=== PATIENT | male | born 1935 | race Caucasian/White ===

== ENCOUNTER 2017-01-09 16:10 | Inpatient (IN) | payer MEDICARE, OTHER ==
--- NOTE | ~2017-01-09 | CN ---
Consultation Report [facility] [address] [place]. [address] NAME: HOSEA CHANCE : 36 STATUS : ADM IN PAT#: [id number] AGE: 81 ADM/REG DATE : 01/09/17 MR#: [id number] REPORT SERV DATE: 01/09/17 DICTATED BY: JULIO CESAR SHEEHAN DATE: 01/09/17 REPORT STATUS : Draft TRANSCRIBED BY: MODL DATE: 01/09/17 CARDIOLOGY CONSULT NOTE DATE OF CONSULTATION: 01/09/2017 REASON FOR CONSULTATION: Elevated cardiac biomarkers and aortic stenosis in an 81-year-old man admitted with suspected GI bleeding. HISTORY OF PRESENT ILLNESS: Mr. Chance is a pleasant 81-year-old man who is a patient of Dr. Roe Rivero. The patient has a history of coronary artery disease, status post coronary artery bypass grafting surgery in the year 1988. The patient also has a history of aortic valve stenosis: This has been followed with serial echocardiography. The patient's most recent echocardiogram performed 05/28/2016 is suggestive of severe aortic stenosis with a calculated valve area of 0.7 cm2 and a mean gradient of 38 mmHg, with dimensionless index of 0.22. The patient apparently has chronic chest pain and dyspnea. It was felt that this may be due to severe anemia however. The plan according to Dr. Rivero at the time of the patient's last visit was for the patient to have a trial of iron supplementation in order to restore his hemoglobin to normal, and then to determine whether the patient continued to have symptoms suggestive of aortic stenosis. The patient apparently was in his usual state of health until one-two weeks ago. The patient began to have a pressure/burning-type chest pain in his chest which would radiate around to his neck and back. This was associated with dyspnea. The patient also describes symptoms suggestive of orthopnea. He was seen by his primary care provider, who later referred him to [facility]. The patient had a lab workup there, which demonstrated severe anemia. The patient underwent transfusion of 2 packed red blood cells. Apparently, further cardiac and GI workup was not pursued, and the patient was eventually discharged to home. He continued to have symptoms of shortness of breath and chest pain and therefore, presented to [facility] Emergency Room this evening. At this time, the patient reports that he is chest pain-free, and breathing easily. PAST MEDICAL HISTORY: 1. Aortic stenosis. 2. Coronary artery disease, status post coronary artery bypass grafting surgery in 1988. 3. Hypertension. 4. Dyslipidemia. 5. Benign prostatic hypertrophy. 6. Hypothyroidism. 7. Benign positional vertigo. PAST SURGICAL HISTORY: Significant only for coronary artery bypass grafting surgery as noted above. FAMILY HISTORY: The patient has a strong positive family history of coronary heart disease. Consultation Report [address] [place]. [address] NAME: HOSEA CHANCE : 36 STATUS : ADM IN [facility]#: [id number] AGE: 81 ADM/REG DATE : 01/09/17 MR#: [id number] REPORT SERV DATE: 01/09/17 DICTATED BY: JULIO CESAR SHEEHAN DATE: 01/09/17 REPORT STATUS : Draft TRANSCRIBED BY: LENA DATE: 01/09/17 He has six brothers, all of whom have been diagnosed with coronary artery disease or undergone coronary artery bypass grafting surgery. His father of complications related to peripheral arterial disease at age 62. There is no family history of sudden cardiac or early malignancy. SOCIAL HISTORY: The patient reports that he quit smoking in the year 1969. He has no significant history of alcohol or drug use. He is . ALLERGIES: THE PATIENT REPORTS AN ADVERSE REACTION TO CODEINE AND DEMEROL, BUT WHICH CAUSE NAUSEA AND VOMITING. HOME MEDICATIONS: 1. Aspirin 81 mg p.o. daily. 2. Vitamin D3 1000 units p.o. daily. 3. Vitamin B12 1000 mcg sublingual daily. 4. Flexeril 5-10 mg p.o. as needed for muscle spasm. 5. Diltiazem XT 180 mg p.o. daily. 6. Doxazosin 2 mg p.o. q.p.m. 7. Avodart 0.5 mg p.o. at bedtime. 8. Glucosamine/D3/Boswellia tablet one daily. 9. Levothyroxine 75 mcg p.o. daily. 10.Lisinopril 20 mg p.o. daily. 11.Magnesium oxide 400 mg p.o. daily. 12.Meclizine 25 mg p.o. q.8 hours p.r.n. 13.Remeron 30 mg p.o. at bedtime. 14.Niaspan 1 g p.o. at bedtime. 15.Fish oil supplement 1 mg p.o. daily. 16.Omeprazole 40 mg p.o. daily. 17.Pravastatin 40 mg p.o. at bedtime. 18.Vitamin E 400 units p.o. daily. 19.Tramadol 100 mg p.o. three times daily as needed for pain. 20.Wjnc-ftw-djgnnmd "arterial therapy" supplement one tablet daily. 21.Iron over the counter supplement one tablet daily. 22.Garlic over the counter supplement one capsule daily. 23.PreserVision soft gel capsules one daily. REVIEW OF SYSTEMS: A complete 12-system review was performed. This is significant for an apparent previous history of chelation therapy according to Dr. Rivero' note. The remainder of the review of systems is noncontributory except for the pertinent positives and negatives noted in the history of present illness above. PHYSICAL EXAMINATION: VITAL SIGNS: Temperature is 98.0 degrees Fahrenheit, blood pressure is 147/63 mmHg, heart rate is 77 beats per minute and regular, respirations 12, oxygen saturation is 99% on room Consultation Report [address] [place]. [address] NAME: HOSEA CHANCE : 36 STATUS : ADM IN [facility]#: [id number] AGE: 81 ADM/REG DATE : 01/09/17 MR#: [id number] REPORT SERV DATE: 01/09/17 DICTATED BY: JULIO CESAR SHEEHAN DATE: 01/09/17 REPORT STATUS : Draft TRANSCRIBED BY: LENA DATE: 01/09/17 air. CONSTITUTIONAL: The patient is a slightly pale appearing elderly white man, who is in no acute distress. EYES: PERRL, EOMI, clear conjunctiva. HEAD/MNT: NCAT with moist mucous membranes and grossly normal hard and soft palate. NECK: Supple with no obvious thyromegaly or lymphadenopathy. CARDIOVASCULAR: There is a regular rhythm with a normal S1 and a diminished aortic component of the second heart sound. There is a grade 3/6 mid-peaking systolic ejection murmur noted at the right upper sternal border with radiation to the sternal notch. The jugular venous pressure appears normal. PULMONARY: Clear to auscultation bilaterally with no wheezing, rales, rhonchi, or dullness to percussion. ABDOMINAL: Soft, non-tender, non-distended with no hepatosplenomegaly noted. EXTREMITIES: There is decreased blood pressure reading in the right upper extremity with slightly diminished right radial pulse in comparison to the left radial pulse. MUSCULOSKELETAL: Grossly normal strength and range of motion in all extremities. INTEGUMENTARY: Skin appears intact with no bruises, wounds or active lesions noted. NEURO/PSYC: Alert and oriented x3, with no dysarthria, facial droop or lateralizing weakness noted. 12-LEAD EKG: The patient's 12-lead EKG shows normal sinus rhythm with nonspecific ST/T-wave abnormalities of the lateral precordial leads which are suggestive of ischemia. Otherwise, unremarkable tracing. LABORATORY DATA: Metabolic profile shows a sodium of 137, potassium 4.2, chloride is 102, CO2 is 29, BUN 12, creatinine is 0.95, glucose is 133, calcium 8.6, albumin is 3.1. Cell count show a white blood cell count of 6.0, hemoglobin 10, hematocrit 31, platelets 187. INR is 1.0. PTT is 30. Troponin I is elevated at 1.05. ASSESSMENT AND PLAN: 1. Elevated cardiac biomarkers: This most likely represents demand ischemia from the patient's recent transfusion-dependent anemia. For now, I would recommend no specific therapy aside from treatment of the patient's underlying GI bleeding. The patient is chest pain-free. Most likely, the patient will require endoscopy. A repeat echocardiogram will be obtained tomorrow to clarify the degree of aortic stenosis. We will make further periprocedural recommendations prior to endoscopy after GI has evaluated the patient. 2. Coronary artery disease: We would recommend that the patient be transitioned from pravastatin to atorvastatin. Continue aspirin if possible. We will withhold beta- leo therapy at this time given possible symptomatic anemia and aortic stenosis. Ultimately, the patient will most likely require coronary angiography in preparation for either aortic valve replacement or to identify occlusive coronary artery disease which may have caused the patient's elevated cardiac biomarkers. 3. Aortic stenosis: The presentation is concerning for symptomatic aortic stenosis. Should the patient be found to have AVMs, this may be a manifestation of severe aortic Consultation Report [place] [address] [place]. [address] NAME: HOSEA CHANCE : 36 STATUS : ADM IN [facility]#: [id number] AGE: 81 ADM/REG DATE : 01/09/17 MR#: [id number] REPORT SERV DATE: 01/09/17 DICTATED BY: JULIO CESAR SHEEHAN DATE: 01/09/17 REPORT STATUS : Draft TRANSCRIBED BY: LENA DATE: 01/09/17 stenosis. Should the patient have severe aortic stenosis by echocardiography, consider further workup for either transcatheter or traditional aortic valve replacement surgery. The Cardiology Service will continue to follow the patient closely during this hospitalization. Thank you for allowing me to participate in the care of Mr. Chance. [facility]/LENA Julio Cesar Sheehan MD / [id number] CC: MD Tom Doran MD
--- NOTE | ~2017-01-09 | CN ---
Consultation Report [facility] [address] [place]. [address] NAME: HOSEA CHANCE : 36 STATUS : ADM IN [facility]#: [id number] AGE: 81 ADM/REG DATE : 01/09/17 MR#: [id number] REPORT SERV DATE: 01/11/17 DICTATED BY: MARGY VAZQUEZ DATE: 01/11/17 REPORT STATUS : Draft TRANSCRIBED BY: MODRenzo DATE: 01/11/17 GI CONSULTATION NOTE DATE OF CONSULTATION: 01/10/2017 REASON FOR CONSULTATION: Dark stool. Anemia. HISTORY OF PRESENT ILLNESS: Mr. Chance is an 81-year-old white male with a history of coronary artery disease, status post CABG in 1988 as well as severe aortic stenosis who presented to [facility] with severe chest pain which radiated to his left side. He had been seen at [facility] for the same complaints at which time, he was also found to be anemic with a hemoglobin of 7.4 and a hematocrit of 22.5. He received 2 units of PRBCs. His H and H on admission were 10 and 30 and they are currently 9.4 and 29.1 respectively; platelets 174. INR is 1. BUN to creatinine ratio is 10:0.82. He has had intermittent dark stools but this is his normal bowel movement as he has been on oral iron supplementation chronically. He has not yet had a bowel movement since he has been in the hospital. He had an echocardiogram earlier today which showed an ejection fraction of 50% to 55% and severe aortic stenosis. His troponin was also elevated at 1 and now is 0.92. No coffee-ground emesis. No hematemesis. No bright red blood per rectum or hematochezia. PAST MEDICAL HISTORY: Coronary artery disease, status post CABG in 1988, severe aortic stenosis, hypertension, dyslipidemia, iron deficiency anemia, and hypothyroidism. PAST SURGICAL HISTORY: CABG in 1988 and skin surgeries. SOCIAL HISTORY: Quit tobacco in . Denies any alcohol or drug use. He is and is at bedside. FAMILY HISTORY: Coronary artery disease. MEDICATIONS: Reviewed. ALLERGIES: REVIEWED. PHYSICAL EXAMINATION: VITAL SIGNS: The patient is afebrile. His vital signs have been stable. GENERAL: The patient is awake, alert, and oriented x3. Well developed, well nourished, in no acute distress. HEENT: Atraumatic, normocephalic. Anicteric. Mucous membranes moist. CARDIAC: S1, S2. A 4/6 murmur heard (aortic stenosis). CHEST: Clear to auscultation bilaterally. ABDOMEN: Soft, nontender, and nondistended. Bowel sounds normoactive. LABORATORY DATA: Show WBC 6.2, hemoglobin 9.4, hematocrit 29.1, and platelets 174. Sodium Consultation Report [place] [address] [place]. [address] NAME: HOSEA CHANCE : 36 STATUS : ADM IN PAT#: [id number] AGE: 81 ADM/REG DATE : 01/09/17 MR#: [id number] REPORT SERV DATE: 01/11/17 DICTATED BY: MARGY VAZQUEZ DATE: 01/11/17 REPORT STATUS : Draft TRANSCRIBED BY: LENA DATE: 01/11/17 139, potassium 4.6, chloride 106, bicarb 24, BUN 10, creatinine 0.82, glucose 92. INR is 1. Troponin 1 and 0.92. Echocardiogram as above. IMPRESSION AND PLAN: Anemia of unclear etiology. The patient reports colonoscopy done several years ago at an outside facility. No history of polyps. Denies any NSAID use. Does not appear to have any active bleeding as his H and H have been stable thus far, and he has had no bowel movements nor any coffee-ground or hematemesis since he has been here. Apparently at [facility], no endoscopic evaluation was performed for his hemoglobin of 7.4 and hematocrit of 22.5, unclear reasons but may be related to his cardiovascular disease and symptoms. Ideally, we would like to follow up on his arteriogram and see his preanesthesia risk of the procedure which may outweigh the benefit given that he is not actively bleeding at this time. At some point, we would recommend an EGD and colonoscopy for further evaluation, but given his cardiovascular risk and lack of bleeding, we will defer until the results of the arteriogram are available. I reviewed this with the patient and his . I reviewed the procedures regarding endoscopy, both panendoscopy and colonoscopy, with the patient and his regarding the risks, benefits, and alternatives and they are agreeable to aid an arteriogram before pursuing endoscopic evaluation. We will continue to follow with you. MIRNA/LENA Margy Vazquez MD / [id number] CC: Isak Harmon [facility]
--- NOTE | ~2017-01-09 | HP ---
History And Physical [facility] [address] [place]. [address] NAME: HOSEA CHANCE : 36 STATUS : ADM IN [facility]#: [id number] AGE: 81 ADM/REG DATE : 01/09/17 MR#: [id number] REPORT SERV DATE: 01/09/17 DICTATED BY: RENATA TINAJERO DATE: 01/09/17 REPORT STATUS : Draft TRANSCRIBED BY: MODL DATE: 01/09/17 DATE OF ADMISSION: 01/09/2017 REASON FOR ADMISSION: Elevated biomarker with heme-positive stool. CHIEF COMPLAINT: "I was told to come here from [facility] because I am having heart issues." CIGAR BANDER: Dr. Paula with [facility]. HISTORY OF PRESENT ILLNESS: An 81-year-old, white male with a history of hypertension, hyperlipidemia, coronary artery disease, status post CABG in 1988 with severe aortic stenosis with a valve area of 0.7 with a mean gradient of 38 based on echo in 05/2016, has been having some off and on pain between his scapula that has been radiating to his left chest side. He says this has been worsening. He had a scheduled appointment with Dr. Paula this past Tuesday, but he decided to go to see his PCP, Dr. Watts, who was not in, but his nurse practitioner had evaluated him. The patient reports that in his PCP's office. He had an EKG, which was reportedly normal, but he had taken a dose of nitroglycerin. The nurse practitioner had instructed him to go to [place] [facility] for further evaluation. While he was going into the ER, he was having ongoing chest pain and took some more nitroglycerin. He eventually had a nitroglycerin patch put on in the ER. He reportedly had a normal EKG. He was admitted to [facility] on Tuesday for it what sounds like a rule out for an OK. He says that he had some biomarkers taken but is not sure of their values. His seems to think that they were "not" normal. He was also anemic but does not recall his hemoglobin level. According to the patient and his , he was initially scheduled for a stress test and went down for one on Tuesday. They were about to inject him with something for his stress test, but they decided to not do it and instead, the physician taking care of the patient contacted one of our [facility] cardiologists on Tuesday and suggesting to transfuse the patient two units when he initially was going to do one unit of blood. Again, we do not know what his biomarkers were or what his hemoglobin levels were. The patient denies any workup for his anemia at [facility] [place] including a Hemoccult or any iron studies. The patient had two units of packed red blood cells transfused with the last unit being administered this morning at [facility]. According to the patient, he says that he had been offered to transfer the patient via ambulance to [facility] as this is where his administrative specialist is, but he was told that it may take a day or two, and so, he felt safe to be discharged. He was discharged and then told to come to [facility] for further evaluation. In the ER, he was found to have a normal EKG, but it elevated a troponin of around 1.05. His hemoglobin is 10. He was found to be Hemoccult positive in the ER; however, the patient states that he has been on iron supplements and having hard stools as a result, he does not notice any melena in his stools or bright red blood. He states that he had a colonoscopy around six to seven years ago that was ordered by Dr. Watts, and he says that it was okay with maybe a polyp. He says that he had three Hemoccult stool cards that were negative with the last one being a month ago as Dr. Watts was working up his anemia. He is currently chest pain free. However, he is wearing the same nitroglycerin patch that he had on at [facility]. He denies any shortness of breath, but he does state that his symptoms of scapular pain radiating to his left side was similar in nature to his OK that he had in 1988, which led to History And Physical [address] [place]. [address] NAME: HOSEA CHANCE : 36 STATUS : ADM IN [facility]#: [id number] AGE: 81 ADM/REG DATE : 01/09/17 MR#: [id number] REPORT SERV DATE: 01/09/17 DICTATED BY: RENATA TINAJERO DATE: 01/09/17 REPORT STATUS : Draft TRANSCRIBED BY: LENA DATE: 01/09/17 his open heart surgery. He states that he had a 95% blockage in one of his vessels that was done on a catheterization sometime after his open heart surgery. He states that Dr. Rivero and Dr. Paula have been watching his aortic stenosis. The patient denies at this time any shortness of breath or orthopnea but does note some increasing chest pain on exertion. I discussed the case with Dr. Warren Sheehan who was on-call in the ER with Cardiology to evaluate this patient. He does not have a roof service technician that he can remember. He does not recall who had performed his colonoscopy years ago. No fever, diarrhea, dysuria, or hematuria. REVIEW OF SYSTEMS: As per HPI, otherwise 10-point systems are reviewed and are negative. PAST MEDICAL HISTORY: 1. OK. 2. Coronary artery disease. 3. Hypertension. 4. Hyperlipidemia. 5. Iron-deficiency anemia. 6. Hypothyroidism. He had [address] Fiore, last one about two years ago. He denies any history of diabetes and stroke. He denies a history of having an EGD. PAST SURGICAL HISTORY: He had a CABG done in 1988. He had some minor skin surgeries. SOCIAL HISTORY: He is a nonsmoker but quit in 1969. He denies any alcohol or illegal drug use. He is for 57 years, one son, he has retired from the [employer]. FAMILY HISTORY: Positive for multiple siblings and relatives with OK and coronary artery disease. ALLERGIES: INCLUDE CODEINE AND MEPERIDINE CAUSING NAUSEA AND VOMITING. MEDICATIONS: Include aspirin 81 mg daily, vitamin D3 1000 units daily, vitamin B12 1000 mcg daily, Flexeril 5-10 mg p.r.n. muscle spasms, Cartia XT 100 mg daily, Cardura 2 mg every evening, Avodart 0.5 mg at bedtime, osteo Bi-Flex one tablet daily, levothyroxine 75 mcg daily, Prinivil 20 mg daily, mag oxide 400 mg daily, Antivert p.r.n. vertigo, Remeron 30 mg at bedtime, Niaspan 1000 mg at bedtime, fish oil 1000 mg daily, Prilosec 40 mg daily, Pravachol 40 mg at bedtime, vitamin E 400 units daily, Ultram 100 mg three times a day p.r.n. pain, iron tablets daily, garlic capsule daily, vision vitamins daily. PHYSICAL EXAMINATION: VITAL SIGNS: Blood pressure is 147/63, temperature is 98, pulse 77, sat 99% on room air. GENERAL: He is in no acute distress. He is very pleasant. He is chest pain free but wearing a nitroglycerin patch from [place]. He is standing up. His is at his bedside. He is in good spirits. HEENT: Normocephalic and atraumatic head. Extraocular muscles are intact. Oropharynx is clear. History And Physical [address] [address] NAME: HOSEA CHANCE : 36 STATUS : ADM IN PAT#: [id number] AGE: 81 ADM/REG DATE : 01/09/17 MR#: [id number] REPORT SERV DATE: 01/09/17 DICTATED BY: RENATA TINAJERO DATE: 01/09/17 REPORT STATUS : Draft TRANSCRIBED BY: LENA DATE: 01/09/17 NECK: Supple. No JVD. CARDIAC: Regular rhythm with a 3/6 murmur consistent with severe aortic stenosis. PULMONARY: Faint bibasilar crackles, otherwise clear. No wheezing. ABDOMEN: Obese, soft, nontender, and nondistended. Positive bowel sounds. EXTREMITIES: Show no clubbing, cyanosis, or edema. NEUROLOGIC: No focal deficits. PSYCHIATRIC: The patient is cooperative. Mood is appropriate. SKIN: Warm and dry. LABORATORY DATA: Labs show a white blood cell count of 6, hemoglobin of 10, MCV of 93, platelet of 187, INR 1. CMP shows an albumin of 3.1, alkaline phosphatase of 34, troponin of 1.05. IMAGING: Chest x-ray interpretation by me shows sternotomy wires with cardiomegaly, no acute process, no pleural effusion. EKG shows normal sinus rhythm. Otherwise, unremarkable. IMPRESSION: 1. Hemoccult stool. This could be possibly secondary to a GI bleed. However, he is on iron pills and has hard stools and does not note any melena prior to hospitalization. This could be a false positive reading. 2. Anemia, iron deficiency, unsure if this is acute blood loss or chronic blood loss, less likely nutritional deficiency as his says that they eat the same thing and she is not anemic. 3. Elevated biomarker, which could be demand ischemia. Given the fact that he was transfused 2 units of blood with a normal EKG; however, this could also represent acute coronary syndrome as he did have chest pain at [place] along with an elevated biomarker. 4. Chest pain from the scapula radiating to his left chest wall but he is chest pain free, currently wearing a nitroglycerin patch. 5. Coronary artery disease with a history of an OK, status post CABG in 1988. 6. Severe aortic stenosis with an area of 0.7 cm2 based on echo in 05/2016. 7. Hypertension. PLAN: The plan is this is an extremely confusing picture given that we do not have any records as of yet from [place] as to whether or not he has anemia causing a demand ischemia or if he truly has acute coronary syndrome. At any rate, we will start PPI drip. We will monitor his troponins. Dr. Sheehan has been notified to help sort this out. [facility] has been consulted for a probable EGD. We will not start a heparin drip for acute coronary syndrome as he could be having a GI bleed. We will resume his home medications. He has been typed and screen. It is unnecessary to do iron studies as he has just finished two units of packed red blood cell transfusion from [place] this morning. We will certainly obtain records from [facility] to ascertain what had transpired at that facility along with what his biomarkers and hemoglobin were. MACIE/LENA History And Physical [address] [address] NAME: HOSEA CHANCE : 36 STATUS : ADM IN [facility]#: [id number] AGE: 81 ADM/REG DATE : 01/09/17 MR#: [id number] REPORT SERV DATE: 01/09/17 DICTATED BY: RENATA TINAJERO DATE: 01/09/17 REPORT STATUS : Draft TRANSCRIBED BY: LENA DATE: 01/09/17 Renata Tinajero MD / [id number] CC: MD MAYA Doran RUSSELL BLAINE C. Samuel Ledford, M.D.
--- NOTE | ~2017-01-09 | DS ---
Discharge Summary [facility] [address] [place]. [address] NAME: HOSEA CHANCE : 36 STATUS : DIS IN PAT#: [id number] AGE: 81 ADM/REG DATE : 01/09/17 MR#: [id number] REPORT SERV DATE: 01/14/17 DICTATED BY: MANINDER MOONEY DATE: 01/13/17 REPORT STATUS : Draft TRANSCRIBED BY: MODL DATE: 01/13/17 ADMISSION DATE: 01/09/2017 DISCHARGE DATE: 01/13/2017 CONDITION ON DISCHARGE: Stable. DISPOSITION: To home. ADVICE ON DISCHARGE: For the patient to follow up with Dr. Rivero, the set up and charger, within the next three to four weeks for evaluation for aortic valve replacement for severe aortic stenosis. DIAGNOSIS ON DISCHARGE: Acute coronary syndrome, status post coronary catheterization and status post coronary stenting in the right coronary artery. It was found that the patient's kiana right coronary artery was blocked to 75% on angiogram and this was taken care of with angioplasty and drug-eluting new stent that was put in by Dr. Rivero. At the same time, it was found that the patient does have severe aortic stenosis, and there is a definitive need for immediate replacement of the aortic valve which will be accomplished by Dr. Rivero within the next one month. OTHER DIAGNOSES: At this time include heme-positive stools - this has resolved, and the patient's hemoglobin and hematocrit are stable. In fact, the patient has received two units of PRBCs to improve his hemoglobin and hematocrit, and has been evaluated by GI, Dr. Vazquez. Right now, because of his pressing coronary issues, the patient will not be getting an endoscopy now, but maybe at some point later, maybe even after he has his aortic valve replaced. Other diagnoses also include the followin. Coronary artery disease with coronary artery bypass graft done in the past. Coronary artery bypass graft was performed more than 25 years ago, and according to the patient, this was performed in the year 1988, and so far, the patient has had a patent grafts of both the internal mammary artery and the saphenous vein graft. 2. Hypertension which is stable. 3. Hyperlipidemia which is stable. 4. Hypothyroidism which is stable. 5. Chronic iron deficiency anemia, for which the patient will go on iron tablets as supplements. BRIEF HOSPITAL COURSE: The patient is a very pleasant 81-year-old male patient who was admitted with the diagnosis as outlined as in the H and P. Essentially, he was admitted with heme-positive stool and also acute coronary syndrome with chest discomfort and elevated biomarkers. Both Cardiology and GI were consulted. As mentioned above, his endoscopy was postponed given that the patient was more in need of coronary revascularization. The patient did undergo coronary angiography and revascularization of the offending vessel which was the right coronary artery at this time. The patient had a 75% block in this artery. Dr. Rivero performed the procedure and put a special stent that requires only a month of Discharge Summary [place] [id number] [place]. [address] NAME: HOSEA CHANCE : 36 STATUS : DIS IN PAT#: [id number] AGE: 81 ADM/REG DATE : 01/09/17 MR#: [id number] REPORT SERV DATE: 01/14/17 DICTATED BY: MANINDER MOONEY DATE: 01/13/17 REPORT STATUS : Draft TRANSCRIBED BY: LENA DATE: 01/13/17 treatment with aspirin and Plavix and after that, the patient can only be on 81 mg of aspirin a day. This should definitely help given the fact that the patient came in with GI bleed and a stool Hemoccult positive. The patient understands this also. So for now, he is being sent home on both Plavix and aspirin, and he will continue only the aspirin in a month's time. In addition to this, the patient also had severe aortic stenosis which will definitely require arteriogram and replacement again in the near future, and Dr. Rivero plans to do this within the next one month. The patient is aware and will follow up with Dr. Rivero within the next one month also. DISCHARGE MEDICATIONS: The medications that the patient will be going home on discharge will include the following: First of all, he will be on aspirin 81 mg every day. He will be on Plavix 75 mg once a day for the next one month only. 1. Tramadol 100 mg p.o. t.i.d., p.r.n. 2. Flexeril 5-10 mg p.o. once at night p.r.n. 3. Cartia XT or diltiazem ER 180 mg once a day. 4. Prilosec 40 mg once a day. 5. Niacin ER 1000 mg at bedtime. 6. Cardura 2 mg p.o. every day. 7. Remeron 30 mg p.o. daily. 8. Prinivil 10 mg p.o. daily. 9. Levothyroxine 75 mcg p.o. daily. 10.Meclizine 25 mg p.o. q.8 hours p.r.n. for dizziness. 11.Avodart 0.5 mg p.o. at bedtime. 12.Vitamin B12 tablets. The patient will also be taking magnesium and other vitamins and supplements as he has been taking in the past. He will also be on Lipitor 40 mg once a day, Lopressor 12.5 mg p.o. b.i.d., and nitroglycerin 0.4 mg sublingually p.r.n. only for chest pain. His most recent labs that I have show that his CBC shows a WBC count of 6.1, hemoglobin 9.7, hematocrit 29.7, which has been stable in the last two days, platelet count of 185. Electrolyte profile shows sodium 141, potassium 3.5, BUN is 6, creatinine is normal at 0.8. His CPK, CK-MB have all come back within normal range. The patient also had a bilateral carotid ultrasound that shows grade 1 disease of less than 50% luminal stenosis in the carotid arteries. Hence, the patient is being discharged home in stable condition with the above advice, and I have spent about 40 minutes in coordinating discharge care of this patient including face-to face encounter and summarizing this discharge. MOHSEN/LENA Maninder Alegria Discharge Summary [place] [address] [address] [place]. [address] NAME: HOSEA CHANCE : 36 STATUS : DIS IN PAT#: [id number] AGE: 81 ADM/REG DATE : 01/09/17 MR#: [id number] REPORT SERV DATE: 01/14/17 DICTATED BY: MANINDER MOONEY DATE: 01/13/17 REPORT STATUS : Draft TRANSCRIBED BY: LENA DATE: 01/13/17 Isak Mooney / [id number] CC: Isak Harmon RUSSELL BLAINE
[2017-01-09 14:08] LABS: BASOPHILS 0.7 %; BASOPHILS ABSOLUTE 0.04 10/3/uL (0.0-0.16); EOSINOPHILS 10.2 %; EOSINOPHILS ABSOLUTE 0.61 10/3/uL (0.0-0.53); ER CBC TAT 0 Hrs 05 Mins; HEMATOCRIT 30.9 % (40.0-51.0); IMMATURE GRANULOCYTES 0.5 %; IMMATURE GRANULOCYTES ABSOLUTE 0.03 10/3/uL (0.0-0.11); LYMPHOCYTES 19.6 %; LYMPHOCYTES ABSOLUTE 1.17 10/3/uL (0.67-4.30); MEAN CORPUS HGB CONC 32.4 g/dL (32.0-36.0); MEAN CORPUSCULAR HEMOGLOB 30.2 pg (26.0-34.0); MEAN CORPUSCULAR VOLUME 93.4 fL (80-100); MEAN PLATELET VOLUME 8.9 fL (9.2-13.0); MONOCYTES 8.9 %; MONOCYTES ABSOLUTE 0.53 10/3/uL (0.21-1.20); NEUTROPHILS 60.1 %; NEUTROPHILS ABSOLUTE 3.58 10/3/uL (2.02-8.40); PLATELET COUNT 187 10/3/uL (150-400); RBC DISTRIBUTION WIDTH 18.5 % (12.0-16.0); RED CELL COUNT 3.31 10/6/uL (4.7-6.1)
[2017-01-09 14:10] LABS: MANUAL DIFF NO %
[2017-01-09 14:22] LABS: PARTIAL THROMBO TIME 30.3 SEC (22.5-37.2); PROTIME (NOT ORD) 13.5 SEC (12.0-14.5)
[2017-01-09 14:23] LABS: A/G RATIO 0.9 (0.7-1.9); ALBUMIN 3.1 G/DL (3.5-5.0); ALKALINE PHOSPHATASE 34 U/L (45-117); BUN (BLOOD UREA NITROGEN) 12 MG/DL (6-23); CALCIUM, SERUM 8.6 MG/DL (8.5-10.4); CHLORIDE, SERUM 102 MMOL/L (96-112); CO2 (CARBON DIOXIDE) 29 MMOL/L (24-34); CREATININE 0.95 MG/DL (0.70-1.30); GFR AFRICAN AMERICAN 87 ML/MIN (>=60); GFR NON AFRICAN AMERICAN 75 ML/MIN (>=60); GLOBULIN 3.5 G/DL (2.5-4.1); GLUCOSE, SERUM 133 MG/DL (60-99); POTASSIUM, SERUM 4.2 MMOL/L (3.5-5.3); SGOT(AST) 24 U/L (5-40); SGPT(ALT) 23 U/L (5-65); SODIUM, SERUM 137 MMOL/L (135-148); TOTAL BILIRUBIN 0.4 MG/DL (0-1.2); TOTAL PROTEIN 6.6 G/DL (6.0-8.5)
[2017-01-09] MEDS ORDERED: FLEXERIL5 MG PO (16:31)
[2017-01-09] MEDS ORDERED: ULTRAM50 PO (16:31)
[2017-01-09] MEDS ORDERED: PRAVACHOL40 MG PO (16:32)
[2017-01-09] MEDS ORDERED: PRILO PO (16:32)
[2017-01-09] MEDS ORDERED: HALF81 PO (16:32)
[2017-01-09] MEDS ORDERED: CARTIA XT180 MG/24 PO (16:32)
[2017-01-09] MEDS ORDERED: CARDU2 PO (16:33)
[2017-01-09] MEDS ORDERED: REMERON30 MG PO (16:33)
[2017-01-09] MEDS ORDERED: PRIN10 PO (16:33)
[2017-01-09] MEDS ORDERED: NIASPAN500 PO (16:33)
[2017-01-09] MEDS ORDERED: LEVOTHYROXIN75 MCG PO (16:33)
[2017-01-09] MEDS ORDERED: AVODART PO (16:34)
[2017-01-09] MEDS ORDERED: MCZ25 PO (16:34)
[2017-01-09] MEDS ORDERED: [UNRECOGNIZED DRUG - OTHER] PO (16:35)
[2017-01-09] MEDS ORDERED: FISH-EPA1000 MG PO (16:35)
[2017-01-09] MEDS ORDERED: VITAMIN D31000 UNIT PO (16:35)
[2017-01-09] MEDS ORDERED: [UNRECOGNIZED DRUG - OTHER] PO (16:35)
[2017-01-09] MEDS ORDERED: MAGOX4 PO (16:35)
[2017-01-09] MEDS ORDERED: VITAMIN B-121000 MC1 SL (16:35)
[2017-01-09] MEDS ORDERED: VITE PO (16:35)
[2017-01-09] MEDS ORDERED: GARLIC CAPSULE PO (16:36)
[2017-01-09] MEDS ORDERED: OSTEO BI-FLEX1 EACH PO (16:36)
[2017-01-09] MEDS ORDERED: PRESERVISION A1 EAC1 PO (16:36)
[2017-01-09 22:41] LABS: PHOSPHORUS, SERUM 3.1 MG/DL (2.5-4.5); TROPONIN I 0.99 NG/ML (<0.05)
[2017-01-10 04:49] LABS: BASOPHILS 0.6 %; BASOPHILS ABSOLUTE 0.04 10/3/uL (0.0-0.16); EOSINOPHILS 10.7 %; EOSINOPHILS ABSOLUTE 0.66 10/3/uL (0.0-0.53); HEMATOCRIT 29.1 % (40.0-51.0); HEMOGLOBIN 9.4 g/dL (13.6-17.8); IMMATURE GRANULOCYTES 0.3 %; IMMATURE GRANULOCYTES ABSOLUTE 0.02 10/3/uL (0.0-0.11); LYMPHOCYTES 21.5 %; LYMPHOCYTES ABSOLUTE 1.33 10/3/uL (0.67-4.30); MEAN CORPUS HGB CONC 32.3 g/dL (32.0-36.0); MEAN PLATELET VOLUME 9.4 fL (9.2-13.0); MONOCYTES 11.1 %; MONOCYTES ABSOLUTE 0.69 10/3/uL (0.21-1.20); NEUTROPHILS 55.8 %; NEUTROPHILS ABSOLUTE 3.45 10/3/uL (2.02-8.40); PLATELET COUNT 174 10/3/uL (150-400); RBC DISTRIBUTION WIDTH 18.1 % (12.0-16.0); RED CELL COUNT 3.13 10/6/uL (4.7-6.1); WHITE BLOOD CELLS 6.2 10/3/uL (4.5-10.5)
[2017-01-10 04:51] LABS: MANUAL DIFF NO %
[2017-01-10 05:00] LABS: BUN (BLOOD UREA NITROGEN) 10 MG/DL (6-23); CHLORIDE, SERUM 106 MMOL/L (96-112); CREATININE 0.82 MG/DL (0.70-1.30); GFR AFRICAN AMERICAN 97 ML/MIN (>=60); GFR NON AFRICAN AMERICAN 84 ML/MIN (>=60); PHOSPHORUS, SERUM 3.8 MG/DL (2.5-4.5); SODIUM, SERUM 139 MMOL/L (135-148)
[2017-01-10 05:01] LABS: CO2 (CARBON DIOXIDE) 24 MMOL/L (24-34); GLUCOSE, SERUM 92 MG/DL (60-99); POTASSIUM, SERUM 4.6 MMOL/L (3.5-5.3)
[2017-01-11 06:51] LABS: BASOPHILS 1.1 %; BASOPHILS ABSOLUTE 0.07 10/3/uL (0.0-0.16); EOSINOPHILS 11.8 %; EOSINOPHILS ABSOLUTE 0.78 10/3/uL (0.0-0.53); HEMATOCRIT 29.4 % (40.0-51.0); HEMOGLOBIN 9.4 g/dL (13.6-17.8); IMMATURE GRANULOCYTES 0.2 %; IMMATURE GRANULOCYTES ABSOLUTE 0.01 10/3/uL (0.0-0.11); LYMPHOCYTES 23.4 %; LYMPHOCYTES ABSOLUTE 1.55 10/3/uL (0.67-4.30); MEAN CORPUSCULAR HEMOGLOB 29.7 pg (26.0-34.0); MEAN CORPUSCULAR VOLUME 92.7 fL (80-100); MEAN PLATELET VOLUME 9.1 fL (9.2-13.0); MONOCYTES 11.2 %; MONOCYTES ABSOLUTE 0.74 10/3/uL (0.21-1.20); NEUTROPHILS 52.3 %; NEUTROPHILS ABSOLUTE 3.47 10/3/uL (2.02-8.40); PLATELET COUNT 190 10/3/uL (150-400); RBC DISTRIBUTION WIDTH 17.4 % (12.0-16.0); RED CELL COUNT 3.17 10/6/uL (4.7-6.1); WHITE BLOOD CELLS 6.6 10/3/uL (4.5-10.5)
[2017-01-11 07:04] LABS: MANUAL DIFF NO %
[2017-01-11 07:07] LABS: BUN (BLOOD UREA NITROGEN) 6 MG/DL (6-23); CALCIUM, SERUM 7.9 MG/DL (8.5-10.4); CHLORIDE, SERUM 107 MMOL/L (96-112); CHOL/HDL RATIO(NOT ORDER) 2.2 (0-5); CHOLESTEROL 118 MG/DL (< 200); CO2 (CARBON DIOXIDE) 27 MMOL/L (24-34); CREATININE 0.79 MG/DL (0.70-1.30); GFR AFRICAN AMERICAN 98 ML/MIN (>=60); GFR NON AFRICAN AMERICAN 85 ML/MIN (>=60); GLUCOSE, SERUM 91 MG/DL (60-99); HDL CHOLESTEROL 54 MG/DL (> 39); LDL CHOLESTEROL 53 MG/DL (< 130); NON-HDL CHOLESTEROL 64 MG/DL (< 160); POTASSIUM, SERUM 3.9 MMOL/L (3.5-5.3); SODIUM, SERUM 139 MMOL/L (135-148); TRIGLYCERIDE 57 MG/DL (< 150)
[2017-01-12 06:19] LABS: BASOPHILS 0.8 %; BASOPHILS ABSOLUTE 0.06 10/3/uL (0.0-0.16); EOSINOPHILS 9.7 %; EOSINOPHILS ABSOLUTE 0.72 10/3/uL (0.0-0.53); HEMATOCRIT 31.9 % (40.0-51.0); HEMOGLOBIN 10.5 g/dL (13.6-17.8); IMMATURE GRANULOCYTES 0.4 %; IMMATURE GRANULOCYTES ABSOLUTE 0.03 10/3/uL (0.0-0.11); LYMPHOCYTES 24.4 %; LYMPHOCYTES ABSOLUTE 1.81 10/3/uL (0.67-4.30); MEAN CORPUS HGB CONC 32.9 g/dL (32.0-36.0); MEAN CORPUSCULAR HEMOGLOB 30.3 pg (26.0-34.0); MEAN CORPUSCULAR VOLUME 91.9 fL (80-100); MEAN PLATELET VOLUME 9.1 fL (9.2-13.0); MONOCYTES 8.6 %; MONOCYTES ABSOLUTE 0.64 10/3/uL (0.21-1.20); NEUTROPHILS 56.1 %; NEUTROPHILS ABSOLUTE 4.17 10/3/uL (2.02-8.40); PLATELET COUNT 203 10/3/uL (150-400); RBC DISTRIBUTION WIDTH 17.3 % (12.0-16.0); RED CELL COUNT 3.47 10/6/uL (4.7-6.1); WHITE BLOOD CELLS 7.4 10/3/uL (4.5-10.5)
[2017-01-12 06:21] LABS: MANUAL DIFF NO %
[2017-01-12 06:32] LABS: BUN (BLOOD UREA NITROGEN) 5 MG/DL (6-23); CHLORIDE, SERUM 106 MMOL/L (96-112); CO2 (CARBON DIOXIDE) 29 MMOL/L (24-34); CREATININE 0.96 MG/DL (0.70-1.30); GFR AFRICAN AMERICAN 86 ML/MIN (>=60); GFR NON AFRICAN AMERICAN 74 ML/MIN (>=60); GLUCOSE, SERUM 100 MG/DL (60-99); POTASSIUM, SERUM 3.6 MMOL/L (3.5-5.3); SODIUM, SERUM 138 MMOL/L (135-148)
[2017-01-12 10:42] LABS: CPK 70 U/L (0-200)
[2017-01-12 10:43] LABS: CK-MB 2.2 NG/ML
[2017-01-13 04:06] LABS: BASOPHILS 0.5 %; BASOPHILS ABSOLUTE 0.03 10/3/uL (0.0-0.16); EOSINOPHILS 11.2 %; EOSINOPHILS ABSOLUTE 0.68 10/3/uL (0.0-0.53); HEMATOCRIT 29.7 % (40.0-51.0); HEMOGLOBIN 9.7 g/dL (13.6-17.8); IMMATURE GRANULOCYTES 0.5 %; IMMATURE GRANULOCYTES ABSOLUTE 0.03 10/3/uL (0.0-0.11); LYMPHOCYTES 18.5 %; LYMPHOCYTES ABSOLUTE 1.12 10/3/uL (0.67-4.30); MANUAL DIFF NO %; MEAN CORPUS HGB CONC 32.7 g/dL (32.0-36.0); MEAN CORPUSCULAR HEMOGLOB 29.8 pg (26.0-34.0); MEAN CORPUSCULAR VOLUME 91.4 fL (80-100); MEAN PLATELET VOLUME 9.5 fL (9.2-13.0); MONOCYTES ABSOLUTE 0.73 10/3/uL (0.21-1.20); NEUTROPHILS 57.3 %; NEUTROPHILS ABSOLUTE 3.47 10/3/uL (2.02-8.40); PLATELET COUNT 185 10/3/uL (150-400); RED CELL COUNT 3.25 10/6/uL (4.7-6.1); WHITE BLOOD CELLS 6.1 10/3/uL (4.5-10.5)
[2017-01-13 04:22] LABS: BUN (BLOOD UREA NITROGEN) 6 MG/DL (6-23); CALCIUM, SERUM 7.6 MG/DL (8.5-10.4); CHLORIDE, SERUM 108 MMOL/L (96-112); CK-MB 5.4 NG/ML; CPK 85 U/L (0-200); CREATININE 0.82 MG/DL (0.70-1.30); GFR AFRICAN AMERICAN 97 ML/MIN (>=60); GFR NON AFRICAN AMERICAN 84 ML/MIN (>=60); GLUCOSE, SERUM 93 MG/DL (60-99); POTASSIUM, SERUM 3.5 MMOL/L (3.5-5.3); SODIUM, SERUM 141 MMOL/L (135-148)
[2017-01-13 04:30] LABS: CKMB INDEX (NOT ORD) 6.4; CO2 (CARBON DIOXIDE) 24 MMOL/L (24-34)
[2017-01-13] MEDS ORDERED: PLAVIX PO (11:18)
[2017-01-13] MEDS ORDERED: LIPITOR40 PO (11:20)
[2017-01-13] MEDS ORDERED: LOP25 PO (11:24)
[2017-01-13] MEDS ORDERED: NTG150 SL (11:24)
[2017-04-04] MEDS ORDERED: KLOR-CON 1010 MEQ PO (13:18)
[2017-04-04] MEDS ORDERED: ASAB PO (13:20)
[2017-04-04] MEDS ORDERED: L20 PO (13:20)
== END 2017-01-13 12:38 | disposition home or self-care (01) | DRG 247 ==
LOC: ER 16:10 → 6NO 18:04 → SSU1 01-12 10:05
PROVIDERS: Emergency Medicine; Internal Medicine; Internal Medicine Cardiovascular Disease
PROC: 027034Z Dilation of Coronary Artery, One Artery with Drug-eluting Intraluminal Device, Percutaneous Approach (ICD-10-PCS; principal; 2017-01-12)
PROC: B2151ZZ Fluoroscopy of Left Heart using Low Osmolar Contrast (ICD-10-PCS; 2017-01-12)
PROC: B2131ZZ Fluoroscopy of Multiple Coronary Artery Bypass Grafts using Low Osmolar Contrast (ICD-10-PCS; 2017-01-12)
PROC: B2181ZZ Fluoroscopy of Left Internal Mammary Bypass Graft using Low Osmolar Contrast (ICD-10-PCS; 2017-01-12)
PROC: 30233N1 Transfusion of Nonautologous Red Blood Cells into Peripheral Vein, Percutaneous Approach (ICD-10-PCS; 2017-01-12)
PROC: 4A023N8 Measurement of Cardiac Sampling and Pressure, Bilateral, Percutaneous Approach (ICD-10-PCS; 2017-01-12)
DX: I25.10 Atherosclerotic heart disease of native coronary artery without angina pectoris (principal); I24.8 Other forms of acute ischemic heart disease; D62 Acute posthemorrhagic anemia; I27.2 Other secondary pulmonary hypertension; K92.1 Melena; I35.0 Nonrheumatic aortic (valve) stenosis; I10 Essential (primary) hypertension; E78.5 Hyperlipidemia, unspecified; E07.9 Disorder of thyroid, unspecified; D50.9 Iron deficiency anemia, unspecified; K59.00 Constipation, unspecified; Z87.891 Personal history of nicotine dependence; Z82.49 Family history of ischemic heart disease and other diseases of the circulatory system; Z95.1 Presence of aortocoronary bypass graft; I25.2 Old myocardial infarction; Z00.6 Encounter for examination for normal comparison and control in clinical research program
CPT/HCPCS: 36415; 71010; 74000; 80048; 80053; 80061; 82550; 82553; 82803; 82962; 83735; 83880; 84100; 84484; 85025; 85347; 85610; 85730; 86850; 86900; 86901; 93005; 93461; 93880; 97161-GP; 97165-GO; 99152; 99153; 99285; A9270-GY; C1725; C1751; C1760; C1769; C1887; C1894; C8929; C9113; C9600; G8978-CH-GP; G8979-CH-GP; G8980-CH-GP; G8987-CH-GO; G8988-CH-GO; G8989-CH-GO; J2250; J2916; J3010; Q9957; Q9967

== ENCOUNTER 2017-02-08 12:30 | Inpatient (IN) | payer MEDICARE, OTHER ==
--- NOTE | ~2017-02-08 | EGD ---
EGD REPORT [facility] [address] [place] [address] NAME: ENDY CHANCE : 36 STATUS : ADM IN PAT#: [id number] AGE: 81 ADM/REG DATE : 02/08/17 MR#: [id number] REPORT SERV DATE: 02/10/17 DICTATED BY: MARGY PALACIO DATE: 02/10/17 REPORT STATUS : Draft TRANSCRIBED BY: [employer] DATE: 02/10/17 [facility] Patient Name: Endy Chance Date of : 1935 Attending MD: MARGY PALACIO, Procedure Date No Time: 02/10/2017 Procedure: Upper GI endoscopy Indications: Acute post hemorrhagic anemia, Melena Referring MD: ALAN TREJO Medicines: Propofol per Anesthesia Complications: No immediate complications. Estimated blood loss: Minimal. Procedure: Pre-Anesthesia Assessment: - ASA Grade Assessment: IV - A patient with severe systemic disease that is a constant threat to life. After obtaining informed consent, the endoscope was passed under direct vision. Throughout the procedure, the patient's blood pressure, pulse, and oxygen saturations were monitored continuously. The GIF [id number] was introduced through the mouth, and advanced to the third part of duodenum. The upper GI endoscopy was accomplished with ease. The patient tolerated the procedure well. Findings: A widely patent Schatzki ring (acquired) was found at the gastroesophageal junction. A small hiatus hernia was present. The Z-line was found 41 cm from the incisors. Hematin (altered blood/ighude-ukdodj-tqxy material) was found in the gastric body. Diffuse mild inflammation characterized by congestion (edema) and erythema was found in the gastric antrum. No biopsies or other specimens were collected for this exam. Localized mild mucosal variance characterized by appearance of possible heterotopia was found in the duodenal bulb. No biopsies or other specimens were collected for this exam. Fresher blood was seen actively oozing in the second portion of the duodenum and after lavage, several small angioectasias with bleeding were found in the second part of the duodenum. To optimize visualization, the area was partially successfully injected with 2 mL of a 1:10,000 solution of epinephrine for hemostasis. Hemostasis was then achieved with administration of argon plasma coagulation. The 3rd part of the duodenum was normal. EGD REPORT [place] [id number] [facility]. [address] NAME: ENDY CHANCE : 36 STATUS : ADM IN [facility]#: [id number] AGE: 81 ADM/REG DATE : 02/08/17 MR#: [id number] REPORT SERV DATE: 02/10/17 DICTATED BY: MARGY PALACIO DATE: 02/10/17 REPORT STATUS : Draft TRANSCRIBED BY: [employer] DATE: 02/10/17 Impression: - Widely patent Schatzki ring. - Hiatus hernia. - Z-line 41 cm from the incisors. - Hematin (altered blood/ezzykc-uksbgv-tzsa material) in the gastric body. - Gastritis. No specimens collected. - Mucosal variant in the duodenum. No specimens collected. 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 Injected. - Normal 3rd part of the duodenum. Recommendation: - Return patient to [facility] for ongoing care. - NPO except ice chips, meds and small sips of clears - No aspirin, ibuprofen, naproxen, or other non-steroidal anti-inflammatory drugs. - Continue present medications. Procedure Code(s): --- Professional --- 82567, Esophagogastroduodenoscopy, flexible, transoral; with control of bleeding, any method Diagnosis Code(s): --- Professional --- K22.2, Esophageal obstruction K44.9, Diaphragmatic hernia without obstruction or gangrene K92.2, Gastrointestinal hemorrhage, unspecified K29.70, Gastritis, unspecified, without bleeding K31.9, Disease of stomach and duodenum, unspecified K31.811, Angiodysplasia of stomach and duodenum with bleeding D62, Acute posthemorrhagic anemia K92.1, Melena CPT copyright 2013 [employer] [place] [employer]. All rights reserved. The codes documented in this report are preliminary and upon physician coder review may be revised to meet current compliance requirements. MARGY PALACIO, 02/10/2017 8:26 AM This report has been signed electronically. Number of Addenda: 0 Note Initiated On: 02/10/2017 7:06 AM EGD REPORT [place] [address] [place]. [address] NAME: ENDY CHANCE : 36 STATUS : ADM IN [facility]#: [id number] AGE: 81 ADM/REG DATE : 02/08/17 MR#: [id number] REPORT SERV DATE: 02/10/17 DICTATED BY: MARGY PALACIO DATE: 02/10/17 REPORT STATUS : Draft TRANSCRIBED BY: [employer] DATE: 02/10/17 Scope Withdrawal Time 0 hours 0 minutes 0 seconds
--- NOTE | ~2017-02-08 | DS ---
Discharge Summary [facility] [address] [place]. [address] NAME: HOSEA CHANCE : 36 STATUS : DIS IN PAT#: [id number] AGE: 81 ADM/REG DATE : 02/08/17 MR#: [id number] REPORT SERV DATE: 02/15/17 DICTATED BY: TRUE YANCEY DATE: 02/14/17 REPORT STATUS : Draft TRANSCRIBED BY: MODL DATE: 02/14/17 ADMISSION DATE: 02/08/2017 DISCHARGE DATE: 02/14/2017 DISCHARGE DIAGNOSES: 1. Gastrointestinal bleeding with esophagogastroduodenoscopy, 02/10/2017, Dr. Gabriela Vazquez, showing widely patent Schatzki's ring. Hiatal hernia. Z-line 41 cm from the incisors. Hematin in gastric body. Gastritis. Mucosal variant in duodenum. Several bleeding angioectasias in the duodenum injected. Normal third part of duodenum. 2. Acute blood loss anemia. 3. Angina associated with acute blood loss anemia with previous history of coronary artery disease, coronary artery bypass grafting in 1988, and recent Leader stent to right coronary artery, 01/12/2017. 4. Severe aortic stenosis, TAVR planned. 5. Systemic hypertension. 6. Hypothyroid, on replacement. 7. B12 deficiency. 8. Iron deficiency. 9. Hyperlipoproteinemia. 10.Type 2 diabetes. 11.Previous stroke. 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 13.Pulmonary nodules on CT imaging, 01/20/2017, one year followup needed. 14.Hepatic cyst on CT imaging. 15.Diverticulosis on CT imaging. 16.Renal cysts on CT imaging. 17.Cholelithiasis on CT imaging. 18.Chronic back pain. 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 20.Depression. 21.Macular degeneration. OPERATION/PROCEDURES: See above. PRESENT ILLNESS: This is an 81-year-old white male who was triaged in the emergency room on 02/08/2017 at 1032 hours complaining of chest pain. Admission vital signs; blood pressure 117/58, temp 98.7, pulse 61, respirations 16, and O2 sat 99%. His evaluation in the emergency room included a hemoglobin which was 7 and a troponin which was 0.04. He was referred to the Hospitalist Service for admission. He was seen by Dr. Christopher and admitted as described on admission history and physical examination. Significant history included a hospitalization here, 01/09/2017 to 01/13/2017, with acute coronary syndrome. Findings of cardiac catheterization include three-vessel grindstone coronary artery disease. Mildly depressed LV function with an EF of 0.5. No significant mitral regurgitation. Patent left internal mammary to LAD graft. Patent saphenous vein graft to Discharge Summary [place] [address] [place]. [address] NAME: HOSEA CHANCE : 36 STATUS : DIS IN PAT#: [id number] AGE: 81 ADM/REG DATE : 02/08/17 MR#: [id number] REPORT SERV DATE: 02/15/17 DICTATED BY: TRUE YANCEY DATE: 02/14/17 REPORT STATUS : Draft TRANSCRIBED BY: LENA DATE: 02/14/17 diagonal branch. Severe aortic stenosis with aortic valve area of 0.59 with a gradient of 59 and mean gradient of 57. Mild pulmonary hypertension with a PA pressure of 39/15. Normal cardiac index of 3.6 L/min per sq m. No evidence of alot-hj-txdwj or jvyfj-cn-xbfe intracardiac shunt by screening oximetry. Successful angioplasty and Leaders, Free investigational drug-eluting, stenting of the right coronary artery from 75% pre to 0% post, successful Angio-Seal closure, right femoral artery. Complicating that presentation was that he had recently been found to be anemic with a hemoglobin of 7.4 and a hematocrit of 22.5. He was found to be iron deficient. He was transfused. During that hospitalization, he was seen by GI, Dr. Vazquez. It was elected at that time to pursue an endoscopic evaluation when his cardiac status allowed. In this setting, he developed nitroglycerin-responsive chest pain 24 to 48 hours prior to presentation. This was associated with increasing dyspnea on exertion progressing to dyspnea at rest. ADDITIONAL HISTORY: Per Dr. Christopher. PHYSICAL EXAMINATION: Per Dr. Christopher. ADMISSION LABORATORY: Per Dr. Christopher. HOSPITAL COURSE: He was admitted by Dr. Christopher with: 1. Gastrointestinal bleeding. 2. Melena. 3. Anemia. 4. Angina. 5. Critical aortic stenosis. 6. Coronary artery disease, previous CABG, recent PCI. 7. Hypothyroid. He was admitted to [address] [place] [address]. He was given crystalloid and packed red blood cell resuscitation. He was started on a Protonix drip. Cardiology and GI consultations were placed. He was seen by Dr. Vasquez from [facility] Cardiology. It was felt that aspirin and Plavix could be held during his hospitalization as he was approximately four weeks out from his Leader stent placement. Antihypertensives were also initially held. He was seen by Dr. Vazquez. Upper GI endoscopy was performed as described above with findings as noted. Dr. Vazquez recommended a slow advancement of his diet. No NSAIDs and PPI therapy. His hospitalist care was by Dr. Zamorano on 02/09/2017; Dr. Srivastava on 02/10/2017, 02/11/2017, and 02/12/2017; and the undersigned on 02/13/2017 and 02/14/2017. His hemoglobin which was 7 on admission increased to 10.8, and then subsequent hemoglobins Discharge Summary [address] [place]. [address] NAME: HOSEA CHANCE : 36 STATUS : DIS IN PAT#: [id number] AGE: 81 ADM/REG DATE : 02/08/17 MR#: [id number] REPORT SERV DATE: 02/15/17 DICTATED BY: TRUE YANCEY DATE: 02/14/17 REPORT STATUS : Draft TRANSCRIBED BY: LENA DATE: 02/14/17 were 10.3, 9.7, 9.3, 10.1, 9.8, 9.5, and 9.2. He received a total of two units of packed red blood cells on 02/09/2017. With the above-mentioned resuscitation, his chest pain and dyspnea resolved, and by the time of discharge, he was actively ambulating without chest pain or dyspnea. He was transitioned from IV Protonix drip to p.o. Protonix. His diet was slowly advanced. He did not have any GI symptoms and his stool by the time of discharge were normal color. When seen by me on 02/14/2017, he was asymptomatic. He thought he could manage at home. His vital signs were stable, his examination was unchanged and his laboratory studies were as noted. At this time, it was felt he had achieved a level of improvement and stability where he could be safely discharged home. He was asked to see Dr. Watts, his primary care physician in [facility] in 48 hours for CBC. He will have Cardiology followup as scheduled. He will continue his home diet and activity as tolerated. DISCHARGE MEDICATIONS: Lipitor 40 mg daily; Plavix 75 mg daily; B12, 1000 mcg sublingually daily; Flexeril 5 to 10 mg at night as needed; vitamin D3, 1000 units daily; Avodart 0.5 mg at bedtime; levothyroxine 75 mcg daily; Remeron 30 mg daily; Lopressor 12.5 mg twice daily; Niaspan ER 1000 mg at bedtime; fish oil 1000 mg twice daily; Prilosec 40 mg twice daily; vitamin E 400 units daily; tramadol 100 mg three times daily as needed; Cartia 180 mg daily; meclizine 25 mg every 8 hours as needed; arterial therapy one daily; iron one tablet daily; magnesium oxide 40 mg daily; PreserVision one capsule daily; osteo Bi-Flex one tablet daily; nitroglycerin sublingually as needed. Pending followup with his primary care physician and Cardiology, he was asked not to use aspirin, garlic tablets, Cardura, or lisinopril at this time. Discharge time greater than 30 minutes. Note, Dr. Watts's telephone number is [phone], to call to get his fax number to send a copy of this report if he is not already in our system. DICTATED BY: True Yancey M.D. DD/LENA True Yancey M.D. Discharge Summary [address] [address] NAME: HOSEA CHANCE : 36 STATUS : DIS IN PAT#: [id number] AGE: 81 ADM/REG DATE : 02/08/17 MR#: [id number] REPORT SERV DATE: 02/15/17 DICTATED BY: TRUE YANCEY DATE: 02/14/17 REPORT STATUS : Draft TRANSCRIBED BY: MODL DATE: 02/14/17 / [id number] CC: Isak Doe MD Brian Negus, M.D.
--- NOTE | ~2017-02-08 | CN ---
Consultation Report [facility] [address] [place]. [address] NAME: HOSEA CHANCE : 36 STATUS : ADM IN [facility]#: [id number] AGE: 81 ADM/REG DATE : 02/08/17 MR#: [id number] REPORT SERV DATE: 02/08/17 DICTATED BY: RELL IRIZARRY DATE: 02/08/17 REPORT STATUS : Draft TRANSCRIBED BY: MODRenzo DATE: 02/08/17 CONSULTATION DATE OF CONSULTATION: 02/08/2017 PRIMARY SALES ENGINEERING MANAGER: Dr. Roe Rivero. REASON FOR CONSULTATION: Angina, severe aortic stenosis. HISTORY OF PRESENT ILLNESS: Mr. Chance is a very pleasant 81-year-old gentleman, whom I recently saw approximately 2-3 weeks ago in [facility] for evaluation of TAVR for severe aortic stenosis. He has a history of severe aortic stenosis; iron-deficiency anemia, requiring blood transfusions; hypertension; hyperlipidemia; CAD, status post CABG (1988); status post recent Leader stent to the RCA (01/12/2017) on aspirin and Plavix, who presents to [facility] today with anginal pains that started about one week ago. He states that he was in his usual state of health and entirely free of angina since his intervention to the right coronary artery in early January up until about the middle of last week when he started to develop left-sided chest pains. These have since increased in frequency and intensity, thereby prompting him to present to [facility] for further evaluation and care. Here triage labs showed anemia with a hemoglobin of 7.0, and a frankly positive Hemoccult stool, consistent with active GI bleed. The patient has been placed on a Protonix drip, is awaiting GI evaluation, and is currently having aspirin and Plavix held. He is additionally receiving IV packed red blood cells for replenishment of blood. He is currently chest pain free but does develop angina at times. PAST MEDICAL HISTORY: As above. FAMILY HISTORY: Noncontributory for premature cardiovascular disease. SOCIAL HISTORY: The patient is a former tobacco smoker, denies drinking alcohol or using drugs. HOME MEDICATIONS: 1. Aspirin. 2. Lipitor. 3. Vitamin D. 4. Plavix. 5. Vitamin B. 6. Flexeril. 7. Diltiazem. 8. Cardura. 9. Avodart. 10.Osteo. 11.Synthroid. Consultation Report [facility] [address] [place]. [address] NAME: HOSEA CHANCE : 36 STATUS : ADM IN PAT#: [id number] AGE: 81 ADM/REG DATE : 02/08/17 MR#: [id number] REPORT SERV DATE: 02/08/17 DICTATED BY: RELL IRIZARRY DATE: 02/08/17 REPORT STATUS : Draft TRANSCRIBED BY: LENA DATE: 02/08/17 12.Prinivil. 13.Magnesium. 14.Antivert. 15.Lopressor. 16.Remeron. 17.Niaspan. 18.Sublingual nitroglycerin p.r.n. 19.Fish oil. 20.Prilosec. 21.Vitamin E. 22.Ultram. 23.Iron. 24.Multivitamin. REVIEW OF SYSTEMS: As above, all other systems otherwise negative. PHYSICAL EXAMINATION: VITAL SIGNS: Blood pressure 117/58, pulse 61, temperature 98.7. GENERAL: Well developed, well nourished, in no acute distress. Conversant and pleasant, mild pallor noted throughout. NEURO: Awake, alert and oriented x3; no focal deficits, appropriate mood. HEENT: Moist mucous membranes, anicteric sclerae, no nasal discharge. NECK: No JVD, no carotid bruit. LUNGS: Clear to auscultation bilaterally, no wheezes, rales or rhonchi. CV: Regular rate and rhythm, 3/6 systolic murmur throughout the precordium. Normal S1, S2. No rubs or gallops. ABD: Soft, non-tender, non-distended, no rebound or guarding. EXT: Warm, dry. No edema. 1+ pulses throughout. SKIN: Warm, dry and intact; no rash. PERTINENT TEST FINDINGS: Creatinine 0.86, potassium 3.9, hemoglobin 7.0, platelets 138. Chest x-ray without acute cardiopulmonary process. EKG with sinus rhythm, lateral T-wave inversions. IMPRESSION AND PLAN: Mr. Chance is a very pleasant 81-year-old man well known to me with a history of severe aortic stenosis awaiting TVAR evaluation; CAD, status post CABG in 89, status post recent Leader stent (01/12/2017), who presents with a GI bleed and anginal pains in the setting of supply ischemia. Accordingly, I recommend IV Protonix, gastroenterology consultation, and supportive care with nasal cannula oxygen as well as IV fluids as necessary. It will be fine to hold antihypertensives for the time being until he is hemodynamically stable. It will also be fine to hold his aspirin and Plavix, as he will be exactly 4 weeks out from his Leader stent placement tomorrow. Otherwise, no specific cardiac therapies need to be implemented for his anginal pains as it is very likely to be supply ischemia in the setting of anemia that has been progressive due to a GI bleed that is Consultation Report [facility] [address] [facility] [address] NAME: HOSEA CHANCE : 36 STATUS : ADM IN PAT#: [id number] AGE: 81 ADM/REG DATE : 02/08/17 MR#: [id number] REPORT SERV DATE: 02/08/17 DICTATED BY: RELL IRIZARRY DATE: 02/08/17 REPORT STATUS : Draft TRANSCRIBED BY: LENA DATE: 02/08/17 active. His anginal pains have already improved, and he is currently chest pain free just on oxygen and with the beginning of his blood transfusions. We will continue to follow. In the unlikely event, he has persistent anginal pains despite having replenished hemoglobin as well as a resolved GI bleed, he may then warrant possible angiography for evaluation of ISR of the Leader stent; however, I doubt that this is the case. AYANNA/LENA Rell Irizarry MD / [id number] CC: MD Tom Sams MD
--- NOTE | ~2017-02-08 | CN ---
Consultation Report [facility] [address] [place]. [address] NAME: HOSEA CHANCE : 37 STATUS : ADM IN [facility]#: [id number] AGE: 81 ADM/REG DATE : 02/08/17 MR#: [id number] REPORT SERV DATE: 02/10/17 DICTATED BY: MARGY VAZQUEZ DATE: 02/10/17 REPORT STATUS : Draft TRANSCRIBED BY: MODL DATE: 02/10/17 GI CONSULTATION DATE OF CONSULTATION: 02/08/2017 REASON FOR CONSULTATION: Melena and anemia. HISTORY OF PRESENT ILLNESS: Mr. Chance is a very pleasant 81-year-old gentleman, who was seen last month when he was found to be anemic, but had more urgent cardiovascular issues going on at that time, including catheterization with stent placement. He was sent home at that time, and returns with complaints of angina, and dark stools, and some shortness of breath. Denies any nausea or vomiting. No hematochezia. He is on chronic iron. His hemoglobin was 7, hematocrit 21.8. On discharge previously he was at 9.4 and 29 respectively. MCV is 100, BUN 17, creatinine 0.89, and INR is 1.1. PAST MEDICAL HISTORY: Coronary artery disease, status post CABG x2, ejection fraction 50% to 55%, ischemic cardiomyopathy, aortic stenosis, thyroid disease, dyslipidemia, hypertension, diabetes, and history of stroke. PAST SURGICAL HISTORY: Coronary artery bypass grafting x2, PCI with recent stent placement last month. FAMILY HISTORY: Coronary artery disease. SOCIAL HISTORY: No smoking, alcohol, or drug use. He is . MEDICATIONS: Reviewed. ALLERGIES: REVIEWED. PHYSICAL EXAMINATION: VITAL SIGNS: The patient is afebrile. His vital signs have been stable. He was orthostatic in the ER. HEENT: Atraumatic and normocephalic. Anicteric. Mucous membranes are moist. CARDIAC: S1 and S2 with 3 to 4/6 murmur heard from aortic stenosis. ABDOMEN: Soft, nontender, and nondistended. Bowel sounds are normoactive. LABORATORY DATA: Show WBC 6.1, hemoglobin 7, hematocrit 21.8, platelets 133, sodium 136, potassium 4.4, chloride 103, bicarb 27, BUN 17, creatinine 0.9. Glucose 121. IMPRESSION AND PLAN: Concern for upper gastrointestinal bleed. He has not had a colonoscopy in quite some time and has been persistently anemic. I have consented for both EGD and colonoscopy to be performed. We are worried about upper gastrointestinal bleed given the dark stools. I reviewed the procedure indications, risks, benefits, and alternatives with Consultation Report [facility] [address] [place]. [address] NAME: HOSEA CHANCE : 37 STATUS : ADM IN PAT#: [id number] AGE: 81 ADM/REG DATE : 02/08/17 MR#: [id number] REPORT SERV DATE: 02/10/17 DICTATED BY: MARGY VAZQUEZ DATE: 02/10/17 REPORT STATUS : Draft TRANSCRIBED BY: LENA DATE: 02/10/17 the patient and he is agreeable to proceed. Obviously, we would like to optimize his fluid resuscitation and hemodynamic status prior to any kind of endoscopy given his high risk of anesthesia, and his cardiopulmonary history, and his history of aortic stenosis. Questions and concerns were addressed. MIRNA/LENA Margy Vazquez MD / [id number] CC: Emilia Zamorano M.D.
--- NOTE | ~2017-02-08 | HP ---
History And Physical [place] [id number] [facility] [place]. [address] NAME: HOSEA CHANCE : 37 STATUS : ADM IN [facility]#: [id number] AGE: 81 ADM/REG DATE : 02/08/17 MR#: [id number] REPORT SERV DATE: 02/08/17 DICTATED BY: AUSTIN GARCIA DATE: 02/08/17 REPORT STATUS : Draft TRANSCRIBED BY: LENA DATE: 02/08/17 DATE OF ADMISSION: 02/08/2017 CHIEF COMPLAINT: Chest pain. HISTORY OF PRESENT ILLNESS: This is an 81-year-old male with medical history of critical aortic stenosis, chronic GI bleed, ischemic cardiomyopathy, EF 50% to 55%, status post CABG x2, history of recent PCI, on dual antiplatelet therapy, who presented to the hospital with complaints of angina and persistent black stool. Of note, the patient was recently admitted to the hospital with heme-positive stool and angina, was found to have critical aortic stenosis, recently underwent left heart catheterization with a coronary stent placement x1, was started on Plavix. During the admission, Gastroenterology, Dr. Vazquez, was consulted. At that point, it was determined that the patient should not have a colonoscopy/endoscopy due to recent cardiac catheterization. The patient was subsequently discharged home to continue iron therapy. Since discharge, the patient reports that he continues to have significant chest pain on exertion. He used to be able to walk almost half a block without chest pain. However, in the last 24-48 hours, he has continuously had severe chest pain. Pain is usually relieved by nitroglycerin. There is associated shortness of breath on exertion, which has progressively worsened and now it is at rest. He also reports associated generalized weakness and fatigue. Denies any dizziness, presyncopal or syncopal episode. The patient reports that he continues to have persistent black stool. He denies any abdominal pain. No hematochezia and no hematemesis. No bleeding from any other orifices. The patient reports that given persistent chest pain and generalized fatigue, worsening shortness of breath and black stool, he decided to call Dr. Rivero' (primary sharemilker) MANAGER [employer]CELLENCE, who advised him to come to the emergency room for further evaluation. In the emergency room, the patient was found to have hemoglobin of 7, heme-positive stool, troponin was less than 0.02, and also noted to have blood pressures in the 90s. The Hospitalist Service was consulted to admit the patient for GI bleed and angina and for further workup. PAST MEDICAL HISTORY: 1. Coronary artery disease, status post CABG x2 and recent PCI, on dual antiplatelet therapy (Plavix and aspirin). 2. Iron deficiency anemia. 3. Hypothyroidism. 4. Hyperlipidemia. 5. Hypertension. 6. History of diabetes mellitus type 2. 7. History of CVA. 8. 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 PAST SURGICAL HISTORY: CABG in 1997. History And Physical [address] [place]. [address] NAME: HOSEA CHANCE : 37 STATUS : ADM IN [facility]#: [id number] AGE: 81 ADM/REG DATE : 02/08/17 MR#: [id number] REPORT SERV DATE: 02/08/17 DICTATED BY: AUSTIN GARCIA DATE: 02/08/17 REPORT STATUS : Draft TRANSCRIBED BY: LENA DATE: 02/08/17 SOCIAL HISTORY: Denies smoking cigarettes, drinking alcohol, or illicit drug use. Currently and lives with his . FAMILY HISTORY: Significant for coronary artery disease in the family. ALLERGIES: ALLERGIC TO: 1. CODEINE. 2. MEPERIDINE. HOME MEDICATIONS: 1. Tramadol 50 mg p.o. t.i.d. 2. Flexeril 5 mg p.o. b.i.d. 3. Aspirin 81 mg p.o. daily. 4. Diltiazem 180 mg p.o. daily. 5. Omeprazole 20 mg p.o. b.i.d. 6. Niacin extended release 500 mg p.o. two pills at bedtime. 7. Doxazosin 2 mg p.o. daily. 8. Mirtazapine 30 mg p.o. at bedtime. 9. Lisinopril 10 mg p.o. daily. 10.Levothyroxine 75 mcg p.o. daily. 11.Meclizine 25 mg p.o. q.8 hours. 12.Vitamin B12, 1000 mcg p.o. b.i.d. 13.Vitamin E 400 units p.o. daily. 14.Iron one tab p.o. daily. 15.Mag oxide 400 mg p.o. daily. 16.Plavix 75 mg p.o. daily. 17.Lipitor 40 mg p.o. daily. 18.Metoprolol 12.5 mg p.o. b.i.d. 19.Nitroglycerin 0.4 mg p.o. x3. REVIEW OF SYSTEMS: A 12-point review of systems performed and essentially positive findings as per HPI. All other systems reviewed and essentially negative. PHYSICAL EXAMINATION: VITAL SIGNS: At the bedside on my evaluation, the patient's blood pressure in the left hand was 94/54, repeat was 101/60 and right hand 74/48. GENERAL: Lying in bed comfortably without any significant shortness of breath. HEENT: Extraocular muscles intact. Pupils equal, round, and reactive. Pale. Anicteric. Oral mucosa moist. CHEST: Nontender. Healed sternotomy scar noted. LUNGS: Clear to auscultation bilaterally. No rhonchi, no wheezes, no crackles. CARDIOVASCULAR: Regular rate and rhythm. S1 and S2. No rubs, no gallops, no murmurs. ABDOMEN: Soft and nontender. No palpably enlarged organomegaly. EXTREMITIES: Lower extremities, no pedal edema. LABORATORY DATA: Hematology: WBC 2.1, hemoglobin 7.0, hematocrit 21.8, MCV 100.5, platelets History And Physical [address] [address] NAME: HOSEA CHANCE : 37 STATUS : ADM IN [facility]#: [id number] AGE: 81 ADM/REG DATE : 02/08/17 MR#: [id number] REPORT SERV DATE: 02/08/17 DICTATED BY: AUSTIN GARCIA DATE: 02/08/17 REPORT STATUS : Draft TRANSCRIBED BY: MODL DATE: 02/08/17 133. PT 14.5, INR 1.1. Chemistry: Sodium 136, potassium 4.4, chloride 103, bicarb 27, BUN 17, creatinine 0.87, glucose 121, calcium 8.6, magnesium 2.1. Troponin is 0.04. BNP 342. IMAGING: Chest x-ray, impression: Stable appearance of the chest with upper normal heart size and prior median sternotomy. No acute process otherwise demonstrated radiographically. ASSESSMENT: 1. GI bleed. 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 2. Melena (heme positive). 3. Anemia secondary to acute blood loss. 4. Angina. 5. Critical aortic stenosis. 6. History of coronary artery disease, status post CABG x2 and recent PCI x1. 7. Hypothyroidism. PLAN: 1. GI bleed. The patient presented with positive heme stools. At this point, we will place two large IV cannulas. We will start gentle IV fluid resuscitation. We will type and cross two units of packed red blood cells at this time, but we will transfuse one unit. We will start the patient on Protonix bolus and Protonix drip. We will monitor the patient's H and H, we will do serial H and H on this patient. I will consult jewelry store manager (Dr. Vazquez). The patient will be admitted to the ICU, and vitals will be monitored q.2 hourly. Angina, likely related to severe anemia in the presence of aortic stenosis. At this time, we will manage the patient for acute GI bleed. At this time, given that there is no evidence of acute ST-segment changes, troponin is less than 0.04 and the patient has no further episode of chest pain at the time of my evaluation, I do not think this is an ischemic process, rather this is likely related to the patient's severe anemia in the context of aortic stenosis. I will hold the patient's Plavix and aspirin at this time. We will consult the Cardiology team to evaluate the patient today. 1. Hypothyroidism. We will recommence the patient's levothyroxine. 2. Admission disposition, IMCU. 3. Admission status, inpatient. 4. Code status, full code. 5. DVT prophylaxis, contraindicated. IOO/MODL Austin Garcia MD / [id number] CC: History And Physical [address] [address] NAME: HOSEA CHANCE : 37 STATUS : ADM IN PAT#: [id number] AGE: 81 ADM/REG DATE : 02/08/17 MR#: [id number] REPORT SERV DATE: 02/08/17 DICTATED BY: AUSTIN GARCIA DATE: 02/08/17 REPORT STATUS : Draft TRANSCRIBED BY: LENA DATE: 02/08/17 MD Tom Sams MD
[2017-02-08 11:20] LABS: BASOPHILS 0.5 %; BASOPHILS ABSOLUTE 0.03 10/3/uL (0.0-0.16); EOSINOPHILS 6.5 %; ER CBC TAT 0 Hrs 09 Mins; IMMATURE GRANULOCYTES 0.5 %; IMMATURE GRANULOCYTES ABSOLUTE 0.03 10/3/uL (0.0-0.11); LYMPHOCYTES 16.7 %; LYMPHOCYTES ABSOLUTE 1.02 10/3/uL (0.67-4.30); MEAN CORPUS HGB CONC 32.1 g/dL (32.0-36.0); MEAN CORPUSCULAR HEMOGLOB 32.3 pg (26.0-34.0); MEAN PLATELET VOLUME 9.5 fL (9.2-13.0); MONOCYTES 6.9 %; MONOCYTES ABSOLUTE 0.42 10/3/uL (0.21-1.20); NEUTROPHILS 68.9 %; NEUTROPHILS ABSOLUTE 4.22 10/3/uL (2.02-8.40); PLATELET COUNT 133 10/3/uL (150-400); RBC DISTRIBUTION WIDTH 18.7 % (12.0-16.0); WHITE BLOOD CELLS 6.1 10/3/uL (4.5-10.5)
[2017-02-08 11:21] LABS: HEMATOCRIT 21.8 % (40.0-51.0); MEAN CORPUSCULAR VOLUME 100.5 fL (80-100); RED CELL COUNT 2.17 10/6/uL (4.7-6.1)
[2017-02-08 11:22] LABS: MANUAL DIFF NO %
[2017-02-08 11:28] LABS: INTERNATIONAL NORMAL RATI 1.1 UNITS (-); PARTIAL THROMBO TIME 27.7 SEC (22.5-37.2); PROTIME (NOT ORD) 14.5 SEC (12.0-14.5)
[2017-02-08 11:35] LABS: BUN (BLOOD UREA NITROGEN) 17 MG/DL (6-23); CALCIUM, SERUM 8.6 MG/DL (8.5-10.4); CHEST PAIN PROFILE TAT 0 Hrs 24 Mins; CHLORIDE, SERUM 103 MMOL/L (96-112); CO2 (CARBON DIOXIDE) 27 MMOL/L (24-34); CREATININE 0.89 MG/DL (0.70-1.30); GFR AFRICAN AMERICAN 94 ML/MIN (>=60); GFR NON AFRICAN AMERICAN 81 ML/MIN (>=60); GLUCOSE, SERUM 121 MG/DL (60-99); POTASSIUM, SERUM 4.4 MMOL/L (3.5-5.3); SODIUM, SERUM 136 MMOL/L (135-148); TROPONIN I 0.04 NG/ML (<0.05)
[~2017-02-08 12:30] MED LIST: AVODART PO; CARDU2 PO; CARTIA XT180 MG/24 PO; FISH-EPA1000 MG PO; FLEXERIL5 MG PO; GARLIC CAPSULE PO; HALF81 PO; LEVOTHYROXIN75 MCG PO; LIPITOR40 PO; LOP25 PO; MAGOX4 PO; MCZ25 PO; NIASPAN500 PO; NTG150 SL; OSTEO BI-FLEX1 EACH PO; PLAVIX PO; PRAVACHOL40 MG PO; PRESERVISION A1 EAC1 PO; PRILO PO; PRIN10 PO; REMERON30 MG PO; ULTRAM50 PO; VITAMIN B-121000 MC1 SL; VITAMIN D31000 UNIT PO; VITE PO; [UNRECOGNIZED DRUG - OTHER] PO; [UNRECOGNIZED DRUG - OTHER] PO
[2017-02-08 18:20] LABS: BASOPHILS 0.6 %; BASOPHILS ABSOLUTE 0.04 10/3/uL (0.0-0.16); EOSINOPHILS 7.5 %; EOSINOPHILS ABSOLUTE 0.47 10/3/uL (0.0-0.53); IMMATURE GRANULOCYTES 0.5 %; IMMATURE GRANULOCYTES ABSOLUTE 0.03 10/3/uL (0.0-0.11); LYMPHOCYTES 22.6 %; LYMPHOCYTES ABSOLUTE 1.41 10/3/uL (0.67-4.30); MEAN CORPUS HGB CONC 31.8 g/dL (32.0-36.0); MEAN CORPUSCULAR HEMOGLOB 31.8 pg (26.0-34.0); MEAN PLATELET VOLUME 9.7 fL (9.2-13.0); MONOCYTES ABSOLUTE 0.56 10/3/uL (0.21-1.20); NEUTROPHILS 59.8 %; NEUTROPHILS ABSOLUTE 3.72 10/3/uL (2.02-8.40); PLATELET COUNT 138 10/3/uL (150-400); RBC DISTRIBUTION WIDTH 18.9 % (12.0-16.0); WHITE BLOOD CELLS 6.2 10/3/uL (4.5-10.5)
[2017-02-08 18:21] LABS: MANUAL DIFF NO %
[2017-02-08 18:27] LABS: INTERNATIONAL NORMAL RATI 1.1 UNITS (-); PROTIME (NOT ORD) 14.2 SEC (12.0-14.5)
[2017-02-08 18:36] LABS: ALBUMIN 2.9 G/DL (3.5-5.0); ALKALINE PHOSPHATASE 35 U/L (45-117); BUN (BLOOD UREA NITROGEN) 15 MG/DL (6-23); CALCIUM, SERUM 8.5 MG/DL (8.5-10.4); CHLORIDE, SERUM 102 MMOL/L (96-112); CO2 (CARBON DIOXIDE) 30 MMOL/L (24-34); CREATININE 0.86 MG/DL (0.70-1.30); GFR AFRICAN AMERICAN 95 ML/MIN (>=60); GFR NON AFRICAN AMERICAN 82 ML/MIN (>=60); PHOSPHORUS, SERUM 3.8 MG/DL (2.5-4.5); POTASSIUM, SERUM 3.9 MMOL/L (3.5-5.3); SGOT(AST) 17 U/L (5-40); SGPT(ALT) 22 U/L (5-65); SODIUM, SERUM 131 MMOL/L (135-148); TOTAL BILIRUBIN 0.3 MG/DL (0-1.2); TOTAL PROTEIN 5.9 G/DL (6.0-8.5)
[2017-02-08 18:37] LABS: GLUCOSE, SERUM 95 MG/DL (60-99)
[2017-02-08 22:18] LABS: HEMATOCRIT 26.3 % (40.0-51.0); HEMOGLOBIN 8.4 g/dL (13.6-17.8)
[2017-02-09 01:16] LABS: HEMATOCRIT 24.3 % (40.0-51.0)
[2017-02-09 04:58] LABS: HEMATOCRIT 23.3 % (40.0-51.0); HEMOGLOBIN 7.6 g/dL (13.6-17.8)
[2017-02-09 09:45] LABS: HEMATOCRIT 24.9 % (40.0-51.0); HEMOGLOBIN 7.9 g/dL (13.6-17.8)
[2017-02-09 23:13] LABS: HEMATOCRIT 32.6 % (40.0-51.0); HEMOGLOBIN 10.8 g/dL (13.6-17.8)
[2017-02-10 10:05] LABS: HEMATOCRIT 30.9 % (40.0-51.0); HEMOGLOBIN 10.3 g/dL (13.6-17.8)
[2017-02-10 10:15] LABS: BUN (BLOOD UREA NITROGEN) 16 MG/DL (6-23); CALCIUM, SERUM 8.3 MG/DL (8.5-10.4); CHLORIDE, SERUM 102 MMOL/L (96-112); CO2 (CARBON DIOXIDE) 29 MMOL/L (24-34); CREATININE 0.79 MG/DL (0.70-1.30); GFR AFRICAN AMERICAN 98 ML/MIN (>=60); GFR NON AFRICAN AMERICAN 85 ML/MIN (>=60); GLUCOSE, SERUM 95 MG/DL (60-99); POTASSIUM, SERUM 3.9 MMOL/L (3.5-5.3)
[2017-02-10 10:16] LABS: SODIUM, SERUM 138 MMOL/L (135-148)
[2017-02-10 15:54] LABS: HEMATOCRIT 28.9 % (40.0-51.0); HEMOGLOBIN 9.7 g/dL (13.6-17.8)
[2017-02-11 05:51] LABS: HEMATOCRIT 27.9 % (40.0-51.0); HEMOGLOBIN 9.3 g/dL (13.6-17.8)
[2017-02-11 16:12] LABS: HEMOGLOBIN 10.1 g/dL (13.6-17.8)
[2017-02-11 16:15] LABS: HEMATOCRIT 31.2 % (40.0-51.0)
[2017-02-12 04:42] LABS: HEMATOCRIT 29.3 % (40.0-51.0); HEMOGLOBIN 9.8 g/dL (13.6-17.8)
[2017-02-13 04:25] LABS: HEMATOCRIT 28.6 % (40.0-51.0); HEMOGLOBIN 9.5 g/dL (13.6-17.8)
[2017-02-14 05:38] LABS: BASOPHILS 1.1 %; BASOPHILS ABSOLUTE 0.05 10/3/uL (0.0-0.16); EOSINOPHILS 10.8 %; EOSINOPHILS ABSOLUTE 0.48 10/3/uL (0.0-0.53); HEMATOCRIT 27.5 % (40.0-51.0); HEMOGLOBIN 9.2 g/dL (13.6-17.8); IMMATURE GRANULOCYTES 0.2 %; IMMATURE GRANULOCYTES ABSOLUTE 0.01 10/3/uL (0.0-0.11); LYMPHOCYTES ABSOLUTE 1.38 10/3/uL (0.67-4.30); MEAN CORPUSCULAR HEMOGLOB 31.9 pg (26.0-34.0); MEAN PLATELET VOLUME 9.1 fL (9.2-13.0); MONOCYTES 12.4 %; MONOCYTES ABSOLUTE 0.55 10/3/uL (0.21-1.20); NEUTROPHILS 44.5 %; NEUTROPHILS ABSOLUTE 1.98 10/3/uL (2.02-8.40); PLATELET COUNT 151 10/3/uL (150-400); RBC DISTRIBUTION WIDTH 17.6 % (12.0-16.0); WHITE BLOOD CELLS 4.5 10/3/uL (4.5-10.5)
[2017-02-14 05:45] LABS: CALCIUM, SERUM 8.1 MG/DL (8.5-10.4); CHLORIDE, SERUM 104 MMOL/L (96-112); CO2 (CARBON DIOXIDE) 28 MMOL/L (24-34); CREATININE 0.96 MG/DL (0.70-1.30); GFR AFRICAN AMERICAN 86 ML/MIN (>=60); GFR NON AFRICAN AMERICAN 74 ML/MIN (>=60); GLUCOSE, SERUM 95 MG/DL (60-99); POTASSIUM, SERUM 3.7 MMOL/L (3.5-5.3); SODIUM, SERUM 138 MMOL/L (135-148)
[2017-02-14 05:47] LABS: BUN (BLOOD UREA NITROGEN) 5 MG/DL (6-23); MANUAL DIFF NO %; MEAN CORPUS HGB CONC 33.5 g/dL (32.0-36.0); MEAN CORPUSCULAR VOLUME 95.5 fL (80-100); RED CELL COUNT 2.88 10/6/uL (4.7-6.1)
[2017-04-04] MEDS ORDERED: KLOR-CON 1010 MEQ PO (13:18)
[2017-04-04] MEDS ORDERED: L20 PO (13:20)
[2017-04-04] MEDS ORDERED: ASAB PO (13:20)
== END 2017-02-14 12:15 | disposition home or self-care (01) | DRG 378 ==
LOC: ER 12:30 → IMCU 14:52 → 6NO 02-09 13:15
PROVIDERS: Emergency Medicine; Hospitalist; Internal Medicine
PROC: 30233N1 Transfusion of Nonautologous Red Blood Cells into Peripheral Vein, Percutaneous Approach (ICD-10-PCS; principal; 2017-02-08)
PROC: 0W3P8ZZ Control Bleeding in Gastrointestinal Tract, Via Natural or Artificial Opening Endoscopic (ICD-10-PCS; 2017-02-10)
PROC: 0D598ZZ Destruction of Duodenum, Via Natural or Artificial Opening Endoscopic (ICD-10-PCS; 2017-02-10)
PROC: 3E0G8GC Introduction of Other Therapeutic Substance into Upper GI, Via Natural or Artificial Opening Endoscopic (ICD-10-PCS; 2017-02-10)
DX: K31.811 Angiodysplasia of stomach and duodenum with bleeding (principal); D62 Acute posthemorrhagic anemia; E11.9 Type 2 diabetes mellitus without complications; K76.89 Other specified diseases of liver; K22.2 Esophageal obstruction; N28.1 Cyst of kidney, acquired; I25.5 Ischemic cardiomyopathy; I25.119 Atherosclerotic heart disease of native coronary artery with unspecified angina pectoris; I35.0 Nonrheumatic aortic (valve) stenosis; I10 Essential (primary) hypertension; E03.9 Hypothyroidism, unspecified; E78.5 Hyperlipidemia, unspecified; K44.9 Diaphragmatic hernia without obstruction or gangrene; K80.20 Calculus of gallbladder without cholecystitis without obstruction; M54.9 Dorsalgia, unspecified; F32.9 Major depressive disorder, single episode, unspecified; E53.8 Deficiency of other specified B group vitamins; K29.70 Gastritis, unspecified, without bleeding; Z00.6 Encounter for examination for normal comparison and control in clinical research program; Z86.73 Personal history of transient ischemic attack (TIA), and cerebral infarction without residual deficits; Z95.1 Presence of aortocoronary bypass graft; Z88.5 Allergy status to narcotic agent; Z88.8 Allergy status to other drugs, medicaments and biological substances; Z79.82 Long term (current) use of aspirin
CPT/HCPCS: 36415; 71010; 80048; 80053; 82962; 83735; 83880; 84100; 84484; 85014; 85018; 85025; 85610; 85730; 86850; 86900; 86901; 86920; 87641; 93005; 96374; 99291; A9270-GY; C9113; J1940; J2370; P9016